=== PATIENT | male | born 1960 | race Caucasian/White ===

== ENCOUNTER 2016-07-11 11:51 | Emergency (ER) | payer MEDICAID ==
[2016-07-11 12:31] LABS: MONOCYTES# 0.8 X 10^3uL (0.2-1.0); NEUTROPHILS# 3.4 X 10^3uL (2.6-6.7)
[2016-07-11 12:36] LABS: BASOPHILS 0.5 % (0.0-2.0); EOSINOPHILS 2.3 % (0.0-6.0); EOSINOPHILS# 0.2 X 10^3uL (0.0-0.4); HEMATOCRIT 48.2 % (42.0-54.0); HEMOGLOBIN 16.8 g/dL (14.0-18.0); LYMPHOCYTES 37.6 % (20.0-40.0); LYMPHOCYTES# 2.7 X 10^3uL (0.8-3.8); MEAN CELL VOLUME 89.8 fL (80.0-100.0); MEAN CORPUS. HGB CONCENTRATION 34.9 g/dL (32.0-36.0); MEAN CORPUSCULAR HEMOGLOBIN 31.4 pg (29.0-35.0); MEAN PLATELET VOLUME 7.7 fL (7.4-10.4); MONOCYTES 11.1 % (2.0-10.0); NEUTROPHILS 48.5 % (54.0-75.0); PLATELET COUNT 233 X 10^3uL (130-440); RED BLOOD COUNT 5.37 X 10^6uL (4.20-6.10); RED CELL DISTRIBUTION WIDTH 12.2 % (11.5-14.5); WHITE BLOOD COUNT 7.1 X 10^3uL (3.9-10.7)
[2016-07-11 12:43] LABS: BLOOD UREA NITROGEN 14 mg/dL (9-20); CALCIUM 9.8 mg/dL (8.4-10.2); CHLORIDE 102 mmol/L (98-107); EST GLOMERULAR FILTRATION RATE > 60 mL/min; GLUCOSE 93 mg/dL (70-100); POTASSIUM 3.9 mmol/L (3.5-5.1); SODIUM 139 mmol/L (137-145)
[2016-07-11 12:55] LABS: TROPONIN I < 0.012 ng/mL (0.00-0.034)
--- NOTE | 2016-07-11 14:29 | CT REPORT ---
HISTORY: Dizzy, abnormal smells and COMPARISON: None. TECHNIQUE: Axial non-contrast images obtained from skull vertex through foramen magnum. Dose reduction technique was utilized. FINDINGS: There is no atrophy. There is no hemorrhage. There is no hydrocephalus. No mass lesion is identifi ed. Bunch white differentiation adequate, there is no infarction. No midline shift is identified. T he paranasal sinuses are clear. No subdural or epidural collection, midline shift or mass effect. No significant chronic white matter changes. Skull is intact. The frontal lobes particularly appear norm al. IMPRESSION: Negative head CT. Final Electronic Signature: This report was electronically signed by Matt Fernandez MD on 07/11/2016 2 :27 PM. mele /
--- NOTE | 2016-07-11 15:29 | ER PHYSICIAN DOCUMENTATION ---
Physician Documentation [facility] Name:Juan Miguel Tolentino Age:55 yrs Sex:Male :1960 Arrival Date:07/11/2016 Time:11:51 Bed3 Private MD:Faina Tony ED, Chris Disposition: 07/11/16 14:48 Discharged to Home/Self Care. Impression: Dizziness - Vertigo, Dehydration, Hypertension. - Condition is Good. - Discharge Instructions: DEHYDRATION (5y-Adult), DIZZINESS, Unk Cause, HYPERTENSION, To Be Confirmed. - Medical Reconciliation form form. - Follow up: Leticia Burris MD; When: 4- 6 days; Reason: Recheck today's complaints, Continuance of care. - Problem is new. - Symptoms have improved. - Notes: Drink 2 - 3 quarts of water every day. Rest... Follow up with Dr. Burris at the [facility] in 4 - 6 days for BP recheck and re-evaluation. Historical: - Allergies: No known drug Allergies; - Home Meds: 1. None - PMHx: HEADACHES; DIVERTICULITIS; - PSHx: COLOSTOMY ; - Tetanus: < 10 years. - Ebola Screening: : Patient negative for fever greater than or equal to 101.5 degrees Fahrenheit, and additional compatible Ebola Virus Disease symptoms. - Immunization history: Flu Vaccine None. - Social history: Smoking status: Patient states former smoker of tobacco. Vital Signs: 07/11 12:18 BP 176 / 114; Pulse 94; Resp 18; Temp 98.3(O); Pulse Ox 94% on R/A; Weight 98.88 kg; rh Height 5 ft. 7 in. (170.18 cm); Pain 0/10; 13:21 BP 136 / 93; Pulse 75; Resp 15; Pulse Ox 92% on R/A; Pain 0/10; rh 15:27 BP 145 / 82; Pulse 70; Resp 15; Pulse Ox 93% on R/A; Pain 0/10; rh 12:18 Body Mass Index 34.14 (98.88 kg, 170.18 cm) rh MDM: 12:22 Patient medically screened. cd 12:40 EKG attached lpr 07/11 12:37 Order name: CBC AUTO DIF, MDIF/RMOR IF IND; Complete Time: 13:06 EDMS 05/17 13:06 Interpretation: Normal. 07/11 12:44 Order name: BASIC METABOLIC PANEL; Complete Time: 13:06 EDMS 07/11 13:06 Interpretation: Normal. 07/11 12:45 Order name: DDIMER; Complete Time: 13:06 EDMS 07/11 14:46 Interpretation: Normal Except: DDIMER 274; Mildly Elevated but not > 10x the patient's cd age. 07/11 12:55 Order name: TROPONIN I; Complete Time: 13:06 EDMS 07/11 13:06 Interpretation: Normal. 07/11 14:06 Order name: CAT SCAN; HEAD W/O CON [id number]; Complete Time: 14:46 EDMS 07/11 14:46 Interpretation: Normal. 07/11 14:30 Order name: CAT SCAN; HEAD W/O CON [id number]; Complete Time: 14:46 EDMS 07/11 14:46 Interpretation: Normal: See Report. 07/11 12:22 Order name: Call For Old Ekg; Complete Time: 12:32 cd 07/11 12:20 Order name: EKG - 12 Lead; Complete Time: 12:20 07/11 12:22 Order name: Continuous Cardiac Monitoring; Complete Time: 12:32 cd 07/11 12:22 Order name: I & O; Complete Time: 12:32 cd 07/11 12:22 Order name: NPO; Complete Time: 12:32 cd 07/11 12:22 Order name: Oxygen; Complete Time: 12:32 cd 07/11 12:22 Order name: Pulse Ox Continuous; Complete Time: 12:32 cd 07/11 12:22 Order name: Accucheck; Complete Time: 12:32 cd Dispensed Medications: 12:32 Drug: NS 0.9% 1000 ml; Route: IV; Rate: bolus; Site: right hand; rh 14:32 Follow up: IV Status: Completed infusion; IV Intake: 1000ml rh 14:32 Drug: NS 0.9% 1000 ml; Route: IV; Rate: 250 ml/hr; Site: right hand; rh 15:28 Follow up: IV Status: Completed infusion; IV Intake: 750ml rh Point of Care Testing: Blood Glucose: 12:15 Blood Glucose: 100 mg/dL; Urine Dip: 13:20 pH: 6.0; ; Specific [place]: 1.015; Ketones: Negative; Glucose: Negative; Protein: rh Negative; Leukocytes: Negative; Nitrite: Negative ; Blood: Negative; Bilirubin: Negative ; Urobilinogen: Normal Ranges: Critical Glucose Levels:Adult <50 mg/dl or >400 mg/dl <40 mg/dl or >180 mg/dl Signatures: Donny Luu MD MD cd Roberts, Leslie, RN RN lpr Hofsess, Rachel
--- NOTE | 2016-07-11 15:29 | ER NURSING DOCUMENTATION ---
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 Pt also reports nausea and slight headache. Pt states he had a similar episode several weeks ago. PT took ibuprofen this AM for headache which relieved his pain,. 13:22 Transition of care: Home. Care prior to arrival: IV initiated. Glucose check. 100 Labs. 13:22 Method Of Arrival: EMS: 410 Triage Assessment: 12:17 General: Appears in no apparent distress, Behavior is cooperative. Pain: Complains of rh pain in HEADACHE. EENT: Oral mucosa is dry. Neuro: Level of Consciousness is awake, alert, obeys commands, Oriented to person, place, time, event, Diesel Scoop Operator are equal bilaterally Moves all extremities. Gait is steady, Speech is normal, Facial symmetry appears normal, Pupils are PERRLA. Cardiovascular: Capillary refill < 3 seconds. Respiratory: Airway is patent Respiratory effort is even, unlabored, Respiratory pattern is regular, symmetrical, Denies shortness of breath. GI: Abdomen is non- distended Reports nausea, Denies diarrhea, vomiting. : No deficits noted. Derm: Skin is intact, is healthy with good turgor, Skin is pink, warm & dry. Historical: - Allergies: No known drug Allergies; - Home Meds: 1. None - PMHx: HEADACHES; DIVERTICULITIS; - PSHx: COLOSTOMY ; - Tetanus: < 10 years. - Ebola Screening: : Patient negative for fever greater than or equal to 101.5 degrees Fahrenheit, and additional compatible Ebola Virus Disease symptoms. - Immunization history: Flu Vaccine None. - Social history: Smoking status: Patient states former smoker of tobacco. Screenin:19 Infectious Disease Risk None. Abuse screen: Denies threats or abuse. Denies injuries rh from another. Nutritional screening: No deficits noted. Assessment: 12:19 See Triage Assessment done by same RN. 13:56 Reassessment: cardiology clinic is faxing up the results of his carotid studies done . rh Vital Signs: 12:18 BP 176 / 114; Pulse 94; Resp 18; Temp 98.3(O); Pulse Ox 94% on R/A; Weight 98.88 kg; rh Height 5 ft. 7 in. (170.18 cm); Pain 0/10; 13:21 BP 136 / 93; Pulse 75; Resp 15; Pulse Ox 92% on R/A; Pain 0/10; rh 15:27 BP 145 / 82; Pulse 70; Resp 15; Pulse Ox 93% on R/A; Pain 0/10; rh 12:18 Body Mass Index 34.14 (98.88 kg, 170.18 cm) rh ED Course: 11:50 Notified ED Physician of patient's arrival and chief complaint. Dr. Luu notified. rh 11:52 Patient arrived in ED. ds 11:52 Faina Tony is Private Physician. ds 11:57 Carmen Wilson is Primary Nurse. rh 11:57 Triage completed. rh 12:00 cafeteria monitor on. Pulse ox on. NIBP on. rh 12:01 EKG done. (by ED staff). Reviewed by Donny Luu MD. rh 12:19 Valuables Remains with patient Patient has correct armband on for positive rh identification. Bed in low position. Call light in reach. Side rails up X 1. 12:19 Maintain field IV. Site clean & dry. Gauge & site: 22g in the R HAND. rh 12:22 Donny Luu MD is Attending Physician. cd 12:40 EKG attached lpr 14:[address] tt 14:06 CAT SCAN; HEAD W/O CON 09662 In Process Unspecified. EDMS 14:[address]. tt 14:47 Leticia Burris MD is Referral Physician. cd Administered Medications: 12:32 Drug: NS 0.9% 1000 ml; Route: IV; Rate: bolus; Site: right hand; rh 14:32 Follow up: IV Status: Completed infusion; IV Intake: 1000ml rh 14:32 Drug: NS 0.9% 1000 ml; Route: IV; Rate: 250 ml/hr; Site: right hand; rh 15:28 Follow up: IV Status: Completed infusion; IV Intake: 750ml rh Point of Care Testing: Blood Glucose: 12:15 Blood Glucose: 100 mg/dL; rh Urine Dip: 13:20 pH: 6.0; ; Specific [employer]: 1.015; Ketones: Negative; Glucose: Negative; Protein: rh Negative; Leukocytes: Negative; Nitrite: Negative ; Blood: Negative; Bilirubin: Negative ; Urobilinogen: Normal Ranges: Intake: 14:32 IV: 1000ml; Total: 1000ml. rh 15:28 IV: 750ml; Total: 1750ml. Outcome: 14:48 Discharge ordered by . laura 15:27 Discharged to home ambulatory, with friend. 15:27 Condition: improved 15:27 Discharge Assessment: Patient awake, alert and oriented x 3. No cognitive and/or functional deficits noted. Patient verbalized understanding of disposition instructions. 15:27 Discharge instructions given to patient, Instructed on discharge instructions, follow up and referral plans. Demonstrated understanding of instructions. 15:27 IV D/Miguel Angel 15:28 Patient left the ED. Signatures: Dispatcher [employer] EDMS Karen Cain, Reg Reg Donny Olmstead MD MD cd Terriere, Tracy tt Roberts, Leslie, RN RN lpr Hofsess, Rachel
== END 2016-07-11 15:29 | disposition home or self-care (01) ==
LOC: ER 11:51
DX: R42 Dizziness and giddiness (principal); E86.0 Dehydration; I10 Essential (primary) hypertension; R11.0 Nausea; R51 Headache; R79.1 Abnormal coagulation profile
CPT/HCPCS: 70450; 80048; 84484; 85025; 85379; 93005; 96360; 96361; 99285; A0425; A0427

== ENCOUNTER 2016-08-24 20:07 | Observation (INO) | payer MEDICAID ==
[2016-08-24 20:37] LABS: BASOPHIL# 0.1 X 10^3uL (0.0-0.1); BASOPHILS 1.3 % (0.0-2.0); EOSINOPHILS 0.7 % (0.0-6.0); EOSINOPHILS# 0.1 X 10^3uL (0.0-0.4); HEMATOCRIT 49.3 % (42.0-54.0); HEMOGLOBIN 17.3 g/dL (14.0-18.0); LYMPHOCYTES 16.9 % (20.0-40.0); LYMPHOCYTES# 1.6 X 10^3uL (0.8-3.8); MEAN CELL VOLUME 90.4 fL (80.0-100.0); MEAN CORPUS. HGB CONCENTRATION 35.1 g/dL (32.0-36.0); MEAN CORPUSCULAR HEMOGLOBIN 31.7 pg (29.0-35.0); MEAN PLATELET VOLUME 7.6 fL (7.4-10.4); MONOCYTES# 0.7 X 10^3uL (0.2-1.0); NEUTROPHILS 74.1 % (54.0-75.0); PLATELET COUNT 214 X 10^3uL (130-440); RED BLOOD COUNT 5.46 X 10^6uL (4.20-6.10); RED CELL DISTRIBUTION WIDTH 12.1 % (11.5-14.5); WHITE BLOOD COUNT 9.5 X 10^3uL (3.9-10.7)
[2016-08-24] MEDS ORDERED: ONDANSETRON HCL 4 MG/2 ML VIAL ONE (20:45)
[2016-08-24 20:48] LABS: ALBUMIN 4.8 g/dL (3.5-5.0); ALKALINE PHOSPHATASE 74 U/L (38-126); ALT 82 U/L (21-72); AST 39 U/L (17-59); BILIRUBIN, DIRECT 0.2 mg/dL (0.0-0.4); BILIRUBIN, TOTAL 1.2 mg/dL (0.2-1.3); BLOOD UREA NITROGEN 17 mg/dL (9-20); CALCIUM 10.1 mg/dL (8.4-10.2); CHLORIDE 102 mmol/L (98-107); EST GLOMERULAR FILTRATION RATE > 60 mL/min; GLUCOSE 103 mg/dL (70-100); LIPASE 72 U/L (23-300); POTASSIUM 3.6 mmol/L (3.5-5.1); SODIUM 136 mmol/L (137-145); TOTAL PROTEIN 7.8 g/dL (6.3-8.2)
[2016-08-24] MEDS ORDERED: KETOROLAC TROMETHAMINE 30 MG/ML VIAL ONE (20:53)
--- NOTE | 2016-08-24 21:39 | RADIOLOGY REPORT ---
HISTORY: Left lower quadrant pain, history of diverticulitis COMPARISON: None. FINDINGS: 3 views of the abdomen obtained. Single frontal view of the chest obtained. No renal, ureteral or urinary bladder calculi are noted. The bowel gas pattern is nonspecific. The bones and soft tissues are unremarkable. Heart size within normal limits. The lungs are clear bilaterally. No effusion or pneumothorax. No wes e air under the hemidiaphragms. IMPRESSION: Unremarkable acute abdominal series. Final Electronic Signature: This report was electronically signed by Alexandr Velasquez MD on 08/24/2016 9:37 PM. [email or web address] /
[2016-08-24] MEDS ORDERED: DICYCLOMINE HCL 10 MG CAPSULE PO ONE (21:59)
[2016-08-24] MEDS ORDERED: DICYCLOMINE HCL 20 MG/2 ML AMP IM ONE (22:00)
--- NOTE | 2016-08-24 23:21 | CT REPORT ---
EXAMINATION: CT OF THE ABDOMEN AND PELVIS WITH IV CONTRAST INDICATION: Left lower quadrant pain. [facility]. TECHNIQUE: Transaxial images of the abdomen and pelvis were obtained from the diaphragmatic dome to t he ischial tuberosity according to routine abdomen and pelvis protocol, following the administration of intravenous contrast material, Isovue 300, 100 ml. This examination was performed using automate d exposure control, adjustment of mA or kV according to patient size, and/or use of iterative reconst ruction technique. COMPARISON: None FINDINGS: Liver: Right lobe is enlarged measuring 20.1 cm craniocaudal. The liver is diffusely hypoattenuating compatible with steatosis. Patent portal veins. Bile ducts: No intra- or extra-hepatic dilation. Gallbladder: No gallstones or wall thickening. Pancreas: Normal. Spleen: No splenomegaly. Adrenals: Normal adrenal glands. Kidneys/Urinary Bladder: Subcentimeter hypoattenuating structures in the kidneys are too small to jessica racterize but may reflect small cysts. Kidneys are without hydronephrosis or obstructive nephrolithi asis. Urinary bladder is thin walled and distended. Reproductive organs: Prostate is normal in size. GI tract/Mesentery: Normal appendix. There is distention of small bowel in the left lower quadrant with fecalization of contents upstream from a possible transition point seen in axial image 68/99. There are postsurgical changes in the re ctosigmoid colon. Vascular: Mild non-circumferential aortic and iliac artery calcifications without aneurysm. Peritoneum/retroperitoneum: No free fluid or free air. Lymph Nodes: No significant lymphadenopathy in the abdomen or pelvis. Bones: Bones are without evidence of acute fractures. Superficial Soft Tissue: Normal. Lower chest: There is bibasilar atelectasis. IMPRESSION: 1. Distention of small bowel in the left lower quadrant with fecalization of contents upstream from a possible transition point. Given adjacent postsurgical changes from prior sigmoid colectomy, findi ngs raise concern for a small bowel obstruction. 2. Hepatomegaly and hepatic steatosis. COMMUNICATION: Dr. Thor Wilkinson discussed the pertinent results with Dr. Tony at 08/24/2016 11:18 PM. Final Electronic Signature: This report was electronically signed by Ramírez Wilkinson MD on 11:19 PM. laurie /
[2016-08-24] MEDS ORDERED: HOME MEDICATION LIST NEEDED 1 EA EACH MC ONE (23:29)
[2016-08-25] MEDS: NORMAL SALINE 1,000 ML IV SCH ×2 (01:19→07:58)
[2016-08-25] MEDS: ONDANSETRON HCL 4 MG/2 ML VIAL IV PRN ×2 (01:19→12:51)
--- NOTE | 2016-08-25 01:19 | ER PHYSICIAN DOCUMENTATION ---
Physician Documentation [facility] Name:Juan Miguel Hurtado Age:56 yrs Sex:Male :1960 Arrival Date:08/24/2016 Time:20:07 Bed4 Private MD:Faina Tony ED, Scott Disposition: 08/24/16 23:24 Admit ordered for Abundio Nathan. Preliminary diagnosis is Bowel Obstruction. - Bed requested for Medical/Surgical. - Condition is Good. - Problem is new. - Symptoms have improved. 23 HR OBS Yes HPI: 08/24 20:52 This 56 yrs old Male presents to ER via Walk In with complaints of Abdominal sc Pain. 20:52 The patient presents with abdominal pain abdominal distention in the left lower sc quadrant, that is diffuse. constipation, has tried to treat at home, with enema(s). Onset: The symptoms/episode began/occurred today. The symptoms do not radiate. Associated signs and symptoms: Pertinent positives: nausea, vomiting, Pertinent negatives: diarrhea, dysuria, fever, vomiting blood. The symptoms are described as waxing/waning. Severity of pain: At its worst the pain was moderate. Historical: - Allergies: No known drug Allergies; - Home Meds: 1. None - PMHx: HEADACHES; DIVERTICULITIS; Dizziness - Vertigo (July 11, 2016); Dehydration (July 11, 2016); Hypertension (July 11, 2016); - PSHx: COLOSTOMY ; - Tetanus: < 10 years. - Ebola Screening: : No symptoms or risks identified at this time. . - Immunization history: Flu Vaccine < 1 year. - Social history: Smoking status: Patient states was never smoker of tobacco. ROS: 20:52 Constitutional: Negative for fever, chills, and weight loss. sc Eyes: Negative for injury, pain, redness, and discharge. ENT: Negative for injury, pain, and discharge. Neck: Negative for injury, pain, and swelling. Cardiovascular: Negative for chest pain, palpitations, and edema. Respiratory: Negative for shortness of breath, cough, wheezing, and pleuritic chest pain. Back: Negative for injury and pain. MS/Extremity: Negative for injury and deformity. Skin: Negative for injury, rash, and discoloration. 20:52 Neuro: Negative for headache, weakness, numbness, tingling, and seizure. sc 20:52 Abdomen/GI: Positive for abdominal pain, nausea, vomiting, constipation, abdominal distension. Exam: Constitutional: This is a well developed, well nourished patient who is awake, alert, and in no acute distress. Head/Face: Normocephalic, atraumatic. Eyes: Pupils equal round and reactive to light, extra-ocular motions intact. Lids and lashes normal. Conjunctiva and sclera are non-icteric and not injected. Cornea within normal limits. Periorbital areas with no swelling, redness, or edema. ENT: Nares patent. No nasal discharge, no septal abnormalities noted. Tympanic membranes are normal and external auditory canals are clear. Oropharynx with no redness, swelling, or masses, exudates, or evidence of obstruction, uvula midline. Mucous membranes moist. Neck: Trachea midline, no thyromegaly or masses palpated, and no cervical lymphadenopathy. Supple, full range of motion without nuchal rigidity, or vertebral point tenderness. No meningismus. Chest/axilla: Normal chest wall appearance and motion. Nontender with no deformity. No lesions are appreciated. Cardiovascular: Regular rate and rhythm with a normal S1 and S2. No gallops, murmurs, or rubs. Normal PMI, no JVD. No pulse deficits. Respiratory: Lungs have equal breath sounds bilaterally, clear to auscultation and percussion. No rales, rhonchi or wheezes noted. No increased work of breathing, no retractions or nasal flaring. Back: No spinal tenderness. No costovertebral tenderness. Full range of motion. 20:53 Skin: Warm, dry with normal turgor. Normal color with no rashes, no lesions, and no sc evidence of cellulitis. 20:53 Abdomen/GI: Inspection: distension, Bowel sounds: diminished, Palpation: moderate abdominal tenderness, in the left lower quadrant. Vital Signs: 20:26 BP 180 / 121; Pulse 88; Resp 16; Temp 97.7; Pulse Ox 98% on R/A; Weight 84.37 kg; mk4 Height 5 ft. 9 in. (175.26 cm); Pain 9/10; 23:06 BP 122 / 88; Pulse 83; Resp 16; Pulse Ox 95% 2 lpm ; Pain 7/10; mk4 07/ 01:12 BP 155 / 96; Pulse 87; Resp 14; Temp 98.5; Pulse Ox 97% on 2 lpm NC; Pain 2/10; mk4 08/24 20:26 Body Mass Index 27.47 (84.37 kg, 175.26 cm) 4 MDM: 08/24 20:14 Patient medically screened. ar 20:53 Differential diagnosis: appendicitis, bowel obstruction, diverticulitis, non-specific sc abd pain. Data reviewed: vital signs, nurses notes, lab test result(s), radiologic studies, and as a result, I will continue to observe the patient, administer IV fluids. 23:23 Counseling: I had a detailed discussion with the patient and/or guardian regarding: the ar historical points, exam findings, and any diagnostic results supporting the discharge/admit diagnosis, lab results, radiology results, the need for further work-up and treatment in the hospital. Physician consultation: Abundio Nathan MD was called at 23:23, was contacted at 23:23, regarding admission, to the floor. 08/24 20:44 Order name: CBC AUTO DIF, MDIF/RMOR IF IND; Complete Time: 20:55 [facility] 08/24 20:51 Order name: BASIC METABOLIC PANEL; Complete Time: 20:55 [facility] 08/24 20:51 Order name: HEPATIC PANEL; Complete Time: 20:55 [facility] 08/24 20:51 Order name: LIPASE; Complete Time: 20:55 [facility] 08/25 13:21 Order name: BASIC METABOLIC PANEL [facility] 08/25 13:27 Order name: CBC AUTO DIF, MDIF/RMOR IF IND [facility] 08/26 07:03 Order name: CBC AUTO DIF, MDIF/RMOR IF IND [facility] 08/26 07:38 Order name: BASIC METABOLIC PANEL [facility] 08/26 07:38 Order name: LACTATE [facility] 08/24 21:42 Order name: ABDOMEN; COMPLET W/CHEST [id number]; Complete Time: 22:59 [facility] 08/24 22:59 Interpretation: Normal. ar 08/24 23:25 Order name: CAT SCAN; ABD/PEL W 06756 [facility] 08/24 20:18 Order name: Iv Saline Lock; Complete Time: 21:00 ar 08/24 20:18 Order name: Urine Dip; Complete Time: 01:15 ar 08/24 20:46 Order name: Oxygen; Complete Time: 20:46 mk2 Dispensed Medications: Completed: NS 0.9% 1000 ml IV at bolus once 20:27 Drug: NS 0.9% 1000 ml; Volume: 1000 ml; Route: IV; Rate: bolus; Infused Over: 45 mins; mk4 Site: right hand; Delivery: [place] [facility]; 22:06 Follow up: IV Status: Completed infusion; Infusion discontinued; IV Intake: 1000ml 4 20:57 Drug: Zofran 4 mg; Route: IVP; Rate: 5 bolus; Infused Over: 2 mins; Site: right hand; mk4 22:07 Follow up: Response: No adverse reaction; Nausea is decreased 4 20:58 Drug: Toradol 30 mg; Route: IVP; Rate: 30 bolus; Infused Over: 3 mins; Site: right hand;4 22:07 Follow up: Response: No adverse reaction; Pain is decreased mk4 22:03 CANCELLED (pt refused): Bentyl 20 mg IM once mk4 22:03 Drug: Bentyl 20 mg; Route: PO; mk4 08/25 01:18 Follow up: Response: No adverse reaction 4 Signatures: Rudi Tony MD MD sc Kruger, Meg RN RN mk2 Jami Rodriguez 4
--- NOTE | 2016-08-25 01:19 | ER NURSING DOCUMENTATION ---
Nurse's Notes [facility] Name:Juan Miguel Hurtado Age:56 yrs Sex:Male :1960 Arrival Date:08/24/2016 Time:20:07 Bed4 Private MD:Faina Tony Diagnosis:Bowel Obstruction Presentation: 08/24 20:17 Presenting complaint: Patient states: N/V x 1. Diffuse abdominal pain. States gave 4 himself an enema without relief. Transition of care: Home. 20:17 Acuity: BISI 3 4 20:17 Method Of Arrival: Walk In [facility] Triage Assessment: 20:25 General: Appears distressed, Behavior is restless. Pain: Complains of pain in right mk4 upper quadrant, left upper quadrant, right lower quadrant and left lower quadrant Pain does not radiate. Pain At worst was 9 out of 10 on a pain scale. EENT: No deficits noted. Neuro: No deficits noted. Cardiovascular: Chest pain is denied. Respiratory: Airway is patent Respiratory effort is even, unlabored. GI: Abdomen is distended, Last BM was August 24, 2016. Bowel sounds present X 4 quads. : No deficits noted. Derm: No deficits noted. Musculoskeletal: No deficits noted. Historical: - Allergies: No known drug Allergies; - Home Meds: 1. None - PMHx: HEADACHES; DIVERTICULITIS; Dizziness - Vertigo (July 11, 2016); Dehydration (July 11, 2016); Hypertension (July 11, 2016); - PSHx: COLOSTOMY ; - Tetanus: < 10 years. - Ebola Screening: : No symptoms or risks identified at this time. . - Immunization history: Flu Vaccine < 1 year. - Social history: Smoking status: Patient states was never smoker of tobacco. Screenin:10 Infectious Disease Risk None. Abuse screen: Denies threats or abuse. Nutritional 4 screening: No deficits noted. Assessment: 20:28 See Triage Assessment done by same RN. [facility] 20:30 GI: Abdomen is tender to palpation X 4 quads. Guarding noted X 4 quads. [facility] Vital Signs: 20:26 BP 180 / 121; Pulse 88; Resp 16; Temp 97.7; Pulse Ox 98% on R/A; Weight 84.37 kg; mk4 Height 5 ft. 9 in. (175.26 cm); Pain 9/10; 23:06 BP 122 / 88; Pulse 83; Resp 16; Pulse Ox 95% 2 lpm ; Pain 7/10; mk4 08/25 01:12 BP 155 / 96; Pulse 87; Resp 14; Temp 98.5; Pulse Ox 97% on 2 lpm NC; Pain 2/10; mk4 08/24 20:26 Body Mass Index 27.47 (84.37 kg, 175.26 cm) mk4 ED Course: 08/24 20:08 Patient arrived in ED. ma1 20:08 Faina Tony is Private Physician. ma1 20:14 Rudi Tony MD is Attending Physician. sc 20:17 Jami Rodriguez is Primary Nurse. mk4 20:19 Triage completed. mk4 20:28 Arm band placed on Bed in low position Call Light in Reach Side rails up x2. Labs mk4 ordered per protocol. Drawn by ED staff. 20:30 Inserted peripheral IV: saline lock: 20 gauge in right hand and blood collected. jt 20:46 Valuables Remains with patient. Pulse ox on. NIBP on. mk2 20:47 Oxygen Oxygen administration via nasal cannula @ 2L/min. mk2 21:00 Patient moved to radiology. mr 21:16 Patient moved back from radiology. mr 23:24 Abundio Nathan MD is Admitting Physician. sc Administered Medications: Completed: NS 0.9% 1000 ml IV at bolus once 20:27 Drug: NS 0.9% 1000 ml; Volume: 1000 ml; Route: IV; Rate: bolus; Infused Over: 45 mins; mk4 Site: right hand; Delivery: [place] [facility]; 22:06 Follow up: IV Status: Completed infusion; Infusion discontinued; IV Intake: 1000ml mk4 20:57 Drug: Zofran 4 mg; Route: IVP; Rate: 5 bolus; Infused Over: 2 mins; Site: right hand; mk4 22:07 Follow up: Response: No adverse reaction; Nausea is decreased mk4 20:58 Drug: Toradol 30 mg; Route: IVP; Rate: 30 bolus; Infused Over: 3 mins; Site: right hand;mk4 22:07 Follow up: Response: No adverse reaction; Pain is decreased mk4 22:03 CANCELLED (pt refused): Bentyl 20 mg IM once mk4 22:03 Drug: Bentyl 20 mg; Route: PO; mk4 08/25 01:18 Follow up: Response: No adverse reaction mk4 Intake: 08/24 22:06 IV: 1000ml; Total: 1000ml. 4 Outcome: 23:24 Decision to Admit by Provider. va 08/25 01:12 Admitted to Med/surg accompanied by nurse, via stretcher, with oxygen, with chart. mk4 Condition: good Report given to [place] DAYquality improvement specialist Assessment: Patient awake and alert. 01:19 Patient left the ED. 4 Signatures: Rudi Tony MD MD sc Kruger, Meg, RN RN sera2 Jami Rodriguez mkZoila Robb Melissa ma1 Alexandr Solorio mr
[2016-08-25] MEDS ORDERED: HOME MEDICATION LIST NEEDED 1 EA EACH MISC ONE (02:00)
[2016-08-25] MEDS ORDERED: SIMETHICONE CHEW 80 MG TABLET PO ONE (03:37)
[2016-08-25] MEDS ORDERED: SIMETHICONE CHEW 80 MG TABLET PO PRN (03:51)
[2016-08-25] MEDS: MAG-AL PLUS XS SUSP 30 ML UDC PO PRN ×3 (04:50→10:47)
[2016-08-25] MEDS: ACETAMINOPHEN 325 MG TABLET PO PRN ×3 (08:56→21:55)
[2016-08-25 13:19] LABS: BLOOD UREA NITROGEN 15 mg/dL (9-20); CALCIUM 9.7 mg/dL (8.4-10.2); CHLORIDE 101 mmol/L (98-107); EST GLOMERULAR FILTRATION RATE > 60 mL/min; GLUCOSE 110 mg/dL (70-100); POTASSIUM 3.9 mmol/L (3.5-5.1); SODIUM 136 mmol/L (137-145)
[2016-08-25 13:23] LABS: BASOPHIL# 0.1 X 10^3uL (0.0-0.1); EOSINOPHILS 0.8 % (0.0-6.0); EOSINOPHILS# 0.1 X 10^3uL (0.0-0.4); HEMATOCRIT 47.3 % (42.0-54.0); HEMOGLOBIN 16.8 g/dL (14.0-18.0); LYMPHOCYTES 15.8 % (20.0-40.0); LYMPHOCYTES# 1.4 X 10^3uL (0.8-3.8); MEAN CELL VOLUME 89.5 fL (80.0-100.0); MEAN CORPUS. HGB CONCENTRATION 35.4 g/dL (32.0-36.0); MEAN CORPUSCULAR HEMOGLOBIN 31.7 pg (29.0-35.0); MEAN PLATELET VOLUME 7.5 fL (7.4-10.4); MONOCYTES# 0.7 X 10^3uL (0.2-1.0); NEUTROPHILS 74.4 % (54.0-75.0); NEUTROPHILS# 6.8 X 10^3uL (2.6-6.7); PLATELET COUNT 224 X 10^3uL (130-440); RED BLOOD COUNT 5.28 X 10^6uL (4.20-6.10); RED CELL DISTRIBUTION WIDTH 12.3 % (11.5-14.5); WHITE BLOOD COUNT 9.1 X 10^3uL (3.9-10.7)
[2016-08-25] MEDS ORDERED: NORMAL SALINE 1,000 ML IV SCH ×2 (14:00→21:15)
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
[2016-08-26 06:56] LABS: BASOPHILS 0.6 % (0.0-2.0); EOSINOPHILS# 0.2 X 10^3uL (0.0-0.4); HEMATOCRIT 42.4 % (42.0-54.0); HEMOGLOBIN 14.6 g/dL (14.0-18.0); LYMPHOCYTES 29.7 % (20.0-40.0); LYMPHOCYTES# 1.9 X 10^3uL (0.8-3.8); MEAN CELL VOLUME 91.3 fL (80.0-100.0); MEAN CORPUS. HGB CONCENTRATION 34.4 g/dL (32.0-36.0); MEAN CORPUSCULAR HEMOGLOBIN 31.4 pg (29.0-35.0); MEAN PLATELET VOLUME 7.6 fL (7.4-10.4); MONOCYTES 9.7 % (2.0-10.0); MONOCYTES# 0.6 X 10^3uL (0.2-1.0); NEUTROPHILS# 3.6 X 10^3uL (2.6-6.7); PLATELET COUNT 164 X 10^3uL (130-440); RED BLOOD COUNT 4.64 X 10^6uL (4.20-6.10); RED CELL DISTRIBUTION WIDTH 12.1 % (11.5-14.5); WHITE BLOOD COUNT 6.3 X 10^3uL (3.9-10.7)
[2016-08-26 07:03] VITALS: BP 107/69; PULSE 67; RESP 16; TEMP 97.6; O2SAT 93
[2016-08-26 07:37] LABS: BLOOD UREA NITROGEN 14 mg/dL (9-20); CALCIUM 8.6 mg/dL (8.4-10.2); CHLORIDE 109 mmol/L (98-107); EST GLOMERULAR FILTRATION RATE > 60 mL/min; GLUCOSE 85 mg/dL (70-100); POTASSIUM 3.7 mmol/L (3.5-5.1); SODIUM 139 mmol/L (137-145)
[2016-08-26 07:38] LABS: LACTATE 0.9 mmol/L (0.7-2.1)
--- NOTE | 2016-08-26 10:06 | DC SUMMARY: IM Note ---
Discharge Summary: IM/Peds Provider: Date of Admission: 08/25/16 Admitting Provider: NICOLETTE MARS MD Attending Provider: MARYCRUZ BURRIS MD Discharging Provider: NICOLETTE MARS MD Primary Care Provider: Discharge Date: 08/26/16 Consults: 08/25/16 10:07 Surgical Consult [CONS] Routine Reason: SBO Hospital Course: This 56-year-old gentleman was admitted to the [facility] on 08/25/16 because of a 1 day history of abdominal bloating, discomfort, nausea, and vomiting. The night before he had tried self treating for possible constipation using enemas. These successfully cleaned out some normal stool but did not resolve his symptoms. On admission his CAT scan was consistent with a small bowel obstruction. He did not improve much with bowel rest over the first 12 hours, having multiple episodes of vomiting, and intermittent hiccups. Overnight, however, his symptoms resolved and he passed 3 stools. This morning he feels normal and tolerated scrambled eggs for breakfast without any abdominal pain. He did say that he had some discomfort while swallowing, which likely is due to to some esophagitis from yesterday's vomiting. He has had no further symptoms since then, though, so I will send him home. His white count remained normal throughout the admission, it is down even further this morning. His electrolytes remained normal with the help of IV normal saline throughout the stay. Dr. Culp, general surgery, evaluated him yesterday and advised watchful waiting. He did have some hypoxia yesterday when he was quite ill, but has a room air oxygen saturation currently is 96%. He does have some suspicion for sleep apnea , and is tentatively planning on getting a sleep study through Dr. Burris. He already has an appointment to see her on 08/29/16 at 10:30 - Time Spent with Patient Total time spent providing and/or coordinating discharge services: 35 min Discharge - Patient/Caregiver Discharge Instructions Activity Level: As tolerated Diet: gluten free Follow up: MARYCRUZ BURRIS MD [ACTIVE (Staff Physician)] - 08/29/16 10:30 am Disposition: HOME, SELF-CARE Discharge Summary Data - Medication History Medication History: Home Medications Other [No Known Home Medications] 08/26/16 Inpatient Medications 08/25/16 03:51 Simethicone Chew [Mylicon] 80 - 160 mg PO Q4H PRN 08/25/16 04:47 Mag-Al Plus Xs Susp [Maalox Liquid] 30 ml PO Q3H PRN 08/25/16 08:18 Acetaminophen [Tylenol] 650 mg PO Q4H PRN Procedures and tests throughout hospitalization: Completed Lab Orders 08/25/16 13:00 BMP [BASIC METABOLIC PANEL] [CHEM] Routine CBC AUTO DIF, MDIF/RMOR IF IND [HEM] Routine 08/26/16 06:35 BMP [BASIC METABOLIC PANEL] [CHEM] AMDRAW CBC AUTO DIF, MDIF/RMOR IF IND [HEM] AMDRAW LACTATE [CHEM] AMDRAW Pending Orders 08/25/16 03:51 Simethicone Chew [Mylicon] 80 - 160 mg PO Q4H PRN 08/25/16 04:47 Mag-Al Plus Xs Susp [Maalox Liquid] 30 ml PO Q3H PRN 08/25/16 08:17 Sips and Chips . 08/25/16 08:18 Acetaminophen [Tylenol] 650 mg PO Q4H PRN 08/25/16 10:07 Surgical Consult [CONS] Routine 08/26/16 09:04 Advance diet as tolerated . 08/26/16 09:57 ADD ON LAB TEST [MULTI] Routine 08/26/16 09:58 Discharge ONCE Labs on day of discharge: Labs from last 24 hours 08/26/16 08/25/16 06:35 13:00 WBC 6.3 9.1 RBC 4.64 5.28 Hgb 14.6 16.8 Hct 42.4 47.3 MCV 91.3 89.5 MCH 31.4 31.7 MCHC 34.4 35.4 RDW 12.1 12.3 Plt Count 164 224 MPV 7.6 7.5 Neutrophils % 57.0 74.4 Lymphocytes % 29.7 15.8 L Eosinophils % 3.0 0.8 Basophils % 0.6 1.0 Neutrophils # 3.6 6.8 H Lymphocytes # 1.9 1.4 Monocytes 9.7 8.0 Monocytes # 0.6 0.7 Eosinophils # 0.2 0.1 Basophils # 0.0 0.1 Sodium 139 136 L Potassium 3.7 3.9 Chloride 109 H 101 Carbon Dioxide 25 27 BUN 14 15 Creatinine 1.1 1.1 GFR Calculation > 60 > 60 Glucose 85 110 H Lactic Acid 0.9 Calcium 8.6 9.7 IM: Discharge Physical Exam - I&O/Vital Signs I&O: Intake & Output 08/25/16 08/26/16 08/26/16 21:59 05:59 13:59 Intake Total 1850 Output Total 4875 1000 Balance -4875 850 Intake: IV 1850 Right Wrist 1850 Output: Urine 875 Emesis 4000 1000 Other: Urine Appearance Clear Clear Urine Color Yellow Yellow Stool Size Large Large Stool Characteristics Liquid Liquid Voiding Method Toilet Toilet # Bowel Movements 3 Vital Signs: Last Vital Signs Temp 36.4 C 08/26/16 07:00 Pulse 67 08/26/16 07:00 Resp 16 08/26/16 09:00 BP 107/69 08/26/16 07:00 Pulse Ox 93 08/26/16 09:00 Oxygen Flow Rate 1.5 Oxygen Delivery Method Nasal Cannula - Constitutional General appearance: Present: obese - Head Head exam: Present: atraumatic - ENT ENT exam: Present: mucous membranes moist (9) - Respiratory Respiratory exam: Present: clear - Cardiovascular Cardiovascular exam: Present: RRR. Absent: systolic murmur - GI/Abdominal GI/Abdominal exam: Present: normal bowel sounds, soft. Absent: tenderness - Extremities Exam Extremities exam: Absent: edema - Neurological Exam Neurological exam: Present: normal gait - Psychiatric Psychiatric exam: Present: normal affect - Allied Health Notes Allied health notes reviewed: nursing
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
== END 2016-08-26 09:30 | disposition home or self-care (01) ==
LOC: ER 20:07 → IN 08-25 00:49
PROVIDERS: ADMIT Family Medicine; ATTEND Family Medicine
DX: K56.60 Unspecified intestinal obstruction (principal); E86.0 Dehydration; K20.9 Esophagitis, unspecified; K59.00 Constipation, unspecified; E78.5 Hyperlipidemia, unspecified; Z79.899 Other long term (current) drug therapy
CPT/HCPCS: 36415; 74022; 74177; 80048; 80076; 83516; 83605; 83690; 85025; 96361; 96374; 96375; 96376; 99285; G0378; J0500; J1170; J1885; J2405; J7030

== ENCOUNTER 2016-08-29 10:34 | Inpatient (IN) | payer MEDICAID ==
[2016-08-29] MEDS ORDERED: HOME MEDICATION LIST NEEDED 1 EA EACH MC ONE ×3 (11:24→16:20)
[2016-08-29] MEDS ORDERED: LACTATED RINGERS 1,000 ML IV ONE (11:38)
[2016-08-29 11:51] LABS: BASOPHILS 0.5 % (0.0-2.0); EOSINOPHILS 4.1 % (0.0-6.0); EOSINOPHILS# 0.2 X 10^3uL (0.0-0.4); HEMATOCRIT 46.1 % (42.0-54.0); HEMOGLOBIN 16.2 g/dL (14.0-18.0); LYMPHOCYTES 34.3 % (20.0-40.0); LYMPHOCYTES# 1.7 X 10^3uL (0.8-3.8); MEAN CELL VOLUME 89.7 fL (80.0-100.0); MEAN CORPUS. HGB CONCENTRATION 35.2 g/dL (32.0-36.0); MEAN CORPUSCULAR HEMOGLOBIN 31.6 pg (29.0-35.0); MEAN PLATELET VOLUME 7.3 fL (7.4-10.4); MONOCYTES 8.9 % (2.0-10.0); MONOCYTES# 0.4 X 10^3uL (0.2-1.0); NEUTROPHILS 52.2 % (54.0-75.0); NEUTROPHILS# 2.7 X 10^3uL (2.6-6.7); PLATELET COUNT 214 X 10^3uL (130-440); RED BLOOD COUNT 5.14 X 10^6uL (4.20-6.10); RED CELL DISTRIBUTION WIDTH 12.1 % (11.5-14.5)
[2016-08-29] MEDS ORDERED: LACTATED RINGERS 1,000 ML IV SCH ×6 (12:00→17:34)
[2016-08-29 12:10] LABS: BLOOD UREA NITROGEN 13 mg/dL (9-20); CALCIUM 9.5 mg/dL (8.4-10.2); CHLORIDE 107 mmol/L (98-107); EST GLOMERULAR FILTRATION RATE > 60 mL/min; GLUCOSE 91 mg/dL (70-100); POTASSIUM 3.7 mmol/L (3.5-5.1); SODIUM 138 mmol/L (137-145)
[2016-08-29] MEDS ORDERED: ceFAZolin/DEXTROSE,ISO 2 GM/50 ML PIGGYBACK IV SCH ×3 (14:00→16:20)
[2016-08-29] MEDS ORDERED: LIDOCAINE HCL 1% 20 ML VIAL SUBCUT PRN (14:04)
[2016-08-29] MEDS ORDERED: MIDAZOLAM HCL 2 MG/2 ML SYR IV PRN (14:04)
[2016-08-29] MEDS ORDERED: FENTANYL 100 MCG/2 ML VIAL IV PRN ×2 (14:04→16:20)
[2016-08-29] MEDS ORDERED: FAMOTIDINE IN SALINE, ISO-OSM 20 MG/50 ML PIGGYBACK IV ONE (14:08)
[2016-08-29] MEDS ORDERED: MIDAZOLAM HCL 2 MG/2 ML VIAL ONE (14:09)
[2016-08-29] MEDS ORDERED: FAMOTIDINE IN SALINE, ISO-OSM 20 MG/50 ML PIGGYBACK IV SCH (14:15)
[2016-08-29] MEDS ORDERED: FENTANYL 100 MCG/2 ML VIAL ONE (14:16)
[2016-08-29] MEDS ORDERED: ONDANSETRON HCL 4 MG/2 ML VIAL ONE (14:21)
[2016-08-29] MEDS ORDERED: NORMAL SALINE FLUSH 10 ML ONE (14:22)
[2016-08-29] MEDS ORDERED: SUCCINYLCHOLINE CHLORIDE 200 MG/10 ML VIAL ONE (14:22)
[2016-08-29] MEDS ORDERED: DEXAMETHASONE 4 MG/ML VIAL ONE (14:22)
[2016-08-29] MEDS ORDERED: ROCURONIUM BROMIDE 50 MG/5 ML VIAL IV ONE (14:22)
[2016-08-29] MEDS ORDERED: FENTANYL 250 MCG/5 ML VIAL ONE (14:22)
[2016-08-29] MEDS ORDERED: BUPIVACAINE HCL/PF 0.25% 10 ML VIAL INJ ONE (14:24)
[2016-08-29] MEDS ORDERED: HEMOSTATIC MATRIX 5 ML SYR MISC ONE (16:04)
[2016-08-29] MEDS ORDERED: ONDANSETRON HCL 4 MG/2 ML VIAL IV PRN ×2 (16:20→17:34)
[2016-08-29] MEDS ORDERED: MORPHINE SULFATE 10 MG/ML SYR IV PRN (16:20)
[2016-08-29] MEDS ORDERED: SUGAMMADEX SODIUM 200 MG/2 ML VIAL IV ONE (16:29)
--- NOTE | 2016-08-29 16:57 | PROCEDURE NOTE: Gen Surgery ---
General Surgery Procedure Note - Date of Encounter Date of Encounter: 08/29/16 - Brief Operative Note (1) Small bowel obstruction due to adhesions Date of procedure: 08/29/16 Pre-Op Diagnosis: sbo Post-op diagnosis: same Procedure: Release of SBO Anesthesia Type: General Physician: RANDEE HORNE Estimated Blood Loss: 50 Pathology: none sent X-ray taken: No Images viewed by surgeon: No Images viewed by radiologist: No Sponge and instrument counts: correct Condition: stable Disposition: floor Narrative: Multiple adhesions in the pelvis and the left lower quadrant. No enterotomies were made. There was no clear point of obstruction so all the adhesions were removed.
[2016-08-29] MEDS ORDERED: ACETAMINOPHEN 1,000 MG/100 ML VIAL IV SCH (17:34)
[2016-08-29] MEDS: ACETAMINOPHEN 1,000 MG/100 ML VIAL IV SCH (20:55)
[2016-08-30] MEDS: ACETAMINOPHEN 1,000 MG/100 ML VIAL IV SCH ×4 (03:23→17:31)
[2016-08-30 06:21] LABS: BASOPHILS 0.6 % (0.0-2.0); EOSINOPHILS 0.1 % (0.0-6.0); HEMATOCRIT 43.8 % (42.0-54.0); HEMOGLOBIN 15.3 g/dL (14.0-18.0); LYMPHOCYTES 13.4 % (20.0-40.0); LYMPHOCYTES# 1.1 X 10^3uL (0.8-3.8); MEAN CELL VOLUME 91.1 fL (80.0-100.0); MEAN CORPUS. HGB CONCENTRATION 34.9 g/dL (32.0-36.0); MEAN CORPUSCULAR HEMOGLOBIN 31.8 pg (29.0-35.0); MEAN PLATELET VOLUME 7.4 fL (7.4-10.4); MONOCYTES 8.8 % (2.0-10.0); MONOCYTES# 0.7 X 10^3uL (0.2-1.0); NEUTROPHILS 77.1 % (54.0-75.0); NEUTROPHILS# 6.5 X 10^3uL (2.6-6.7); PLATELET COUNT 217 X 10^3uL (130-440); RED CELL DISTRIBUTION WIDTH 12.4 % (11.5-14.5); WHITE BLOOD COUNT 8.3 X 10^3uL (3.9-10.7)
[2016-08-30 06:35] LABS: A/G RATIO 1.4; ALBUMIN 3.8 g/dL (3.5-5.0); ALKALINE PHOSPHATASE 43 U/L (38-126); ALT 76 U/L (21-72); AST 31 U/L (17-59); BILIRUBIN, TOTAL 1.3 mg/dL (0.2-1.3); BLOOD UREA NITROGEN 14 mg/dL (9-20); CALCIUM 8.9 mg/dL (8.4-10.2); CHLORIDE 105 mmol/L (98-107); EST GLOMERULAR FILTRATION RATE > 60 mL/min; GLUCOSE 108 mg/dL (70-100); POTASSIUM 4.2 mmol/L (3.5-5.1); SODIUM 138 mmol/L (137-145); TOTAL PROTEIN 6.5 g/dL (6.3-8.2)
[2016-08-30] MEDS ORDERED: KETOROLAC TROMETHAMINE 30 MG/ML VIAL IV PRN (09:04)
--- NOTE | 2016-08-30 09:11 | PROGRESS NOTE:General Surgery ---
Assessment and Plan - Date of Encounter Date of Encounter: 08/30/16 (1) Small bowel obstruction due to adhesions Status: Resolved Current Visit: Yes (2) Ileus, postoperative Status: Acute Current Visit: Yes - Time Spent With Patient Total time spent with greater than 50% in coordination of care (as documented) at patient's floor/unit and/or counseling patient: Thus far the patient is doing well. No flatus yet but bowel sounds are fairly active. Wound looks good. Labs ok this a.m.. Will slowly advance to a clear liquid diet. ELVIE: Gen Surg PN Subjective Patient reports: afebrile, still having pain, no bowel movement, no chest pain, no fever, no flatus, no nausea ELVIE: Gen Surgery PN Obj Exam - Latest Vital Signs and I&O Latest Vital Signs/I&O: Vital Signs Temp 36.3 C L 08/30/16 06:12 Pulse 68 08/30/16 06:12 Resp 16 08/30/16 06:12 BP 104/70 08/30/16 06:12 Pulse Ox 90 08/30/16 06:12 Intake & Output 08/29/16 08/30/16 08/30/16 17:59 05:59 17:59 Intake Total 1950 1100 Output Total 300 Balance 1950 800 Weight 97.069 kg 97.069 kg Intake: IV 1950 1050 Left Wrist 1950 Right Hand 1050 Oral 50 Output: Urine 300 Other: Urine Appearance Clear Urine Color Yellow Voiding Method Urinal # Voids 1 - Exam General physical exam: well developed Respiratory exam: clear to auscultation, other (decreased respiratory expansion ) Abdomen exam: bowel sounds (present), soft, other (wound looks ok) - Lab Labs: Laboratory Last Values WBC 8.3 X 10^3uL (3.9-10.7) 08/30/16 06:05 RBC 4.80 X 10^6uL (4.20-6.10) 08/30/16 06:05 Hgb 15.3 g/dL (14.0-18.0) 08/30/16 06:05 Hct 43.8 % (42.0-54.0) 08/30/16 06:05 MCV 91.1 fL (80.0-100.0) 08/30/16 06:05 MCH 31.8 pg (29.0-35.0) 08/30/16 06:05 MCHC 34.9 g/dL (32.0-36.0) 08/30/16 06:05 RDW 12.4 % (11.5-14.5) 08/30/16 06:05 Plt Count 217 X 10^3uL (130-440) 08/30/16 06:05 MPV 7.4 fL (7.4-10.4) 08/30/16 06:05 Neutrophils % 77.1 % (54.0-75.0) H 08/30/16 06:05 Lymphocytes % 13.4 % (20.0-40.0) L 08/30/16 06:05 Eosinophils % 0.1 % (0.0-6.0) 08/30/16 06:05 Basophils % 0.6 % (0.0-2.0) 08/30/16 06:05 Neutrophils # 6.5 X 10^3uL (2.6-6.7) 08/30/16 06:05 Lymphocytes # 1.1 X 10^3uL (0.8-3.8) 08/30/16 06:05 Monocytes 8.8 % (2.0-10.0) 08/30/16 06:05 Monocytes # 0.7 X 10^3uL (0.2-1.0) 08/30/16 06:05 Eosinophils # 0.0 X 10^3uL (0.0-0.4) 08/30/16 06:05 Basophils # 0.0 X 10^3uL (0.0-0.1) 08/30/16 06:05 Sodium 138 mmol/L (137-145) 08/30/16 06:05 Potassium 4.2 mmol/L (3.5-5.1) 08/30/16 06:05 Chloride 105 mmol/L (98-107) 08/30/16 06:05 Carbon Dioxide 22 mmol/L (22-30) 08/30/16 06:05 BUN 14 mg/dL (9-20) 08/30/16 06:05 Creatinine 1.0 mg/dL (0.7-1.3) 08/30/16 06:05 GFR Calculation > 60 mL/min 08/30/16 06:05 Glucose 108 mg/dL (70-100) H 08/30/16 06:05 Calcium 8.9 mg/dL (8.4-10.2) 08/30/16 06:05 Total Bilirubin 1.3 mg/dL (0.2-1.3) 08/30/16 06:05 AST 31 U/L (17-59) 08/30/16 06:05 ALT 76 U/L (21-72) H 08/30/16 06:05 Alkaline Phosphatase 43 U/L (38-126) 08/30/16 06:05 Total Protein 6.5 g/dL (6.3-8.2) 08/30/16 06:05 Albumin 3.8 g/dL (3.5-5.0) D 08/30/16 06:05 Albumin/Globulin Ratio 1.4 08/30/16 06:05 Quality Questions - VTE Prophylaxis Assessment VTE Present on Admission?: No Patient at risk for venous thromboembolism?: Yes VTE Risk Level: Moderate Risk Pharmaceutical VTE prophylaxis contraindication reason: not indicated Mechanical VTE prophylaxis contraindication reason: N/A- VTE prophylaxsis ordered
[2016-08-30] MEDS ORDERED: DEXTROSE IV SCH (10:00)
[2016-08-30] MEDS ORDERED: POTASSIUM CHLORIDE IV SCH (10:00)
[2016-08-30] MEDS ORDERED: [UNRECOGNIZED DRUG - OTHER] IV SCH (10:00)
[2016-08-30] MEDS ORDERED: BISACODYL 10 MG SUPP.RECT RECTAL PRN (16:37)
[2016-08-30] MEDS ORDERED: NA PHOS,M-B/NA PHOS,DI-BA 133 ML BTL RECTAL PRN (16:38)
[2016-08-31] MEDS: ACETAMINOPHEN 1,000 MG/100 ML VIAL IV SCH ×2 (00:26→05:47)
[2016-08-31] MEDS ORDERED: ONDANSETRON ODT 4 MG TAB.RAPDIS PO PRN (07:16)
[2016-08-31] MEDS ORDERED: ACETAMINOPHEN 325 MG TABLET PO PRN (07:18)
--- NOTE | 2016-08-31 07:21 | PROGRESS NOTE:General Surgery ---
Assessment and Plan - Date of Encounter Date of Encounter: 08/31/16 (1) Small bowel obstruction due to adhesions Status: Resolved Current Visit: Yes (2) Ileus, postoperative Status: Acute Current Visit: Yes - Time Spent With Patient Total time spent with greater than 50% in coordination of care (as documented) at patient's floor/unit and/or counseling patient: starting to pass flatus and feeling better. Tolerating liquids. Will switch to po pain meds and hopefully discharge tomorrow. ELVIE: Gen Surg PN Subjective Patient reports: afebrile, feels better, flatus, still having pain, tolerating liquids well, no bowel movement, no chest pain, no fever, no nausea ELVIE: Gen Surgery PN Obj Exam - Latest Vital Signs and I&O Latest Vital Signs/I&O: Vital Signs Temp 36.6 C 08/31/16 07:00 Pulse 83 08/31/16 07:00 Resp 20 08/31/16 07:00 BP 138/82 08/31/16 07:00 Pulse Ox 91 08/31/16 07:00 Intake & Output 08/30/16 08/31/16 08/31/16 17:59 05:59 17:59 Intake Total 1990 400 Output Total 500 525 Balance 1490 -125 Weight 93.44 kg Intake: IV 950 Right Hand 950 Oral 1040 400 Output: Urine 500 525 Other: Urine Appearance Clear Clear Urine Color Straw Yellow Voiding Method Urinal Urinal - Exam Respiratory exam: clear to auscultation, other (decreased respiratory expansion ) Abdomen exam: bowel sounds (present), soft, other (wound looks ok) - Lab Labs: Laboratory Last Values WBC 8.3 X 10^3uL (3.9-10.7) 08/30/16 06:05 RBC 4.80 X 10^6uL (4.20-6.10) 08/30/16 06:05 Hgb 15.3 g/dL (14.0-18.0) 08/30/16 06:05 Hct 43.8 % (42.0-54.0) 08/30/16 06:05 MCV 91.1 fL (80.0-100.0) 08/30/16 06:05 MCH 31.8 pg (29.0-35.0) 08/30/16 06:05 MCHC 34.9 g/dL (32.0-36.0) 08/30/16 06:05 RDW 12.4 % (11.5-14.5) 08/30/16 06:05 Plt Count 217 X 10^3uL (130-440) 08/30/16 06:05 MPV 7.4 fL (7.4-10.4) 08/30/16 06:05 Neutrophils % 77.1 % (54.0-75.0) H 08/30/16 06:05 Lymphocytes % 13.4 % (20.0-40.0) L 08/30/16 06:05 Eosinophils % 0.1 % (0.0-6.0) 08/30/16 06:05 Basophils % 0.6 % (0.0-2.0) 08/30/16 06:05 Neutrophils # 6.5 X 10^3uL (2.6-6.7) 08/30/16 06:05 Lymphocytes # 1.1 X 10^3uL (0.8-3.8) 08/30/16 06:05 Monocytes 8.8 % (2.0-10.0) 08/30/16 06:05 Monocytes # 0.7 X 10^3uL (0.2-1.0) 08/30/16 06:05 Eosinophils # 0.0 X 10^3uL (0.0-0.4) 08/30/16 06:05 Basophils # 0.0 X 10^3uL (0.0-0.1) 08/30/16 06:05 Sodium 138 mmol/L (137-145) 08/30/16 06:05 Potassium 4.2 mmol/L (3.5-5.1) 08/30/16 06:05 Chloride 105 mmol/L (98-107) 08/30/16 06:05 Carbon Dioxide 22 mmol/L (22-30) 08/30/16 06:05 BUN 14 mg/dL (9-20) 08/30/16 06:05 Creatinine 1.0 mg/dL (0.7-1.3) 08/30/16 06:05 GFR Calculation > 60 mL/min 08/30/16 06:05 Glucose 108 mg/dL (70-100) H 08/30/16 06:05 Calcium 8.9 mg/dL (8.4-10.2) 08/30/16 06:05 Total Bilirubin 1.3 mg/dL (0.2-1.3) 08/30/16 06:05 AST 31 U/L (17-59) 08/30/16 06:05 ALT 76 U/L (21-72) H 08/30/16 06:05 Alkaline Phosphatase 43 U/L (38-126) 08/30/16 06:05 Total Protein 6.5 g/dL (6.3-8.2) 08/30/16 06:05 Albumin 3.8 g/dL (3.5-5.0) D 08/30/16 06:05 Albumin/Globulin Ratio 1.4 08/30/16 06:05
[2016-08-31] MEDS: IBUPROFEN 600 MG TABLET PO PRN ×3 (08:32→22:05)
[2016-09-01] MEDS: IBUPROFEN 600 MG TABLET PO PRN (06:25)
[2016-09-01 06:39] VITALS: BP 134/85; PULSE 76; RESP 18; TEMP 97.5; O2SAT 91
--- NOTE | 2016-09-01 07:44 | PROGRESS NOTE:General Surgery ---
Assessment and Plan - Date of Encounter Date of Encounter: 09/01/16 (1) Small bowel obstruction due to adhesions Status: Resolved Assessment and plan: He is doing well. Tolerating diet. Up walking with minimal pain. Having bowel function. dischage today. He will go slow on diet advance. Follow up planned with Dr Terrazas. Rx for pain meds and nausea given. Current Visit: Yes - Time Spent With Patient Total time spent with greater than 50% in coordination of care (as documented) at patient's floor/unit and/or counseling patient: Estimated anticipated discharge: today ELVIE: Gen Surg PN Subjective Patient reports: afebrile, feels better, flatus, no new complaints, still having pain, tolerating liquids well (Had a BM, tolerating po), no bowel movement, no chest pain, no fever, no nausea ELVIE: Gen Surgery PN Obj Exam - Latest Vital Signs and I&O Latest Vital Signs/I&O: Vital Signs Temp 36.4 C L 09/01/16 06:38 Pulse 76 09/01/16 06:38 Resp 18 09/01/16 07:31 BP 134/85 09/01/16 06:38 Pulse Ox 91 09/01/16 07:31 Intake & Output 08/31/16 09/01/16 09/01/16 17:59 05:59 17:59 Intake Total 1040 385 Output Total 350 Balance 1040 35 Intake: Oral 1040 385 Output: Urine 350 Other: Urine Appearance Clear Clear Clear Urine Color Yellow Straw Straw Voiding Method Urinal Toilet Toilet # Voids 1 - Exam General physical exam: no distress (abdomen soft, dressing intact) Respiratory exam: clear to auscultation, other (decreased respiratory expansion ) Abdomen exam: bowel sounds (present), soft, other (wound looks ok) - Lab Labs: Laboratory Last Values WBC 8.3 X 10^3uL (3.9-10.7) 08/30/16 06:05 RBC 4.80 X 10^6uL (4.20-6.10) 08/30/16 06:05 Hgb 15.3 g/dL (14.0-18.0) 08/30/16 06:05 Hct 43.8 % (42.0-54.0) 08/30/16 06:05 MCV 91.1 fL (80.0-100.0) 08/30/16 06:05 MCH 31.8 pg (29.0-35.0) 08/30/16 06:05 MCHC 34.9 g/dL (32.0-36.0) 08/30/16 06:05 RDW 12.4 % (11.5-14.5) 08/30/16 06:05 Plt Count 217 X 10^3uL (130-440) 08/30/16 06:05 MPV 7.4 fL (7.4-10.4) 08/30/16 06:05 Neutrophils % 77.1 % (54.0-75.0) H 08/30/16 06:05 Lymphocytes % 13.4 % (20.0-40.0) L 08/30/16 06:05 Eosinophils % 0.1 % (0.0-6.0) 08/30/16 06:05 Basophils % 0.6 % (0.0-2.0) 08/30/16 06:05 Neutrophils # 6.5 X 10^3uL (2.6-6.7) 08/30/16 06:05 Lymphocytes # 1.1 X 10^3uL (0.8-3.8) 08/30/16 06:05 Monocytes 8.8 % (2.0-10.0) 08/30/16 06:05 Monocytes # 0.7 X 10^3uL (0.2-1.0) 08/30/16 06:05 Eosinophils # 0.0 X 10^3uL (0.0-0.4) 08/30/16 06:05 Basophils # 0.0 X 10^3uL (0.0-0.1) 08/30/16 06:05 Sodium 138 mmol/L (137-145) 08/30/16 06:05 Potassium 4.2 mmol/L (3.5-5.1) 08/30/16 06:05 Chloride 105 mmol/L (98-107) 08/30/16 06:05 Carbon Dioxide 22 mmol/L (22-30) 08/30/16 06:05 BUN 14 mg/dL (9-20) 08/30/16 06:05 Creatinine 1.0 mg/dL (0.7-1.3) 08/30/16 06:05 GFR Calculation > 60 mL/min 08/30/16 06:05 Glucose 108 mg/dL (70-100) H 08/30/16 06:05 Calcium 8.9 mg/dL (8.4-10.2) 08/30/16 06:05 Total Bilirubin 1.3 mg/dL (0.2-1.3) 08/30/16 06:05 AST 31 U/L (17-59) 08/30/16 06:05 ALT 76 U/L (21-72) H 08/30/16 06:05 Alkaline Phosphatase 43 U/L (38-126) 08/30/16 06:05 Total Protein 6.5 g/dL (6.3-8.2) 08/30/16 06:05 Albumin 3.8 g/dL (3.5-5.0) D 08/30/16 06:05 Albumin/Globulin Ratio 1.4 08/30/16 06:05 Tissue Transglutaminase See comments 08/29/16 11:40
--- NOTE | 2016-09-12 11:36 | PREOPERATIVE H&P ---
History of Present Illness (Rudi Terrazas M.D.; 08/29/2016 10:42 AM) The patient is a 56 year old male who presents with abdominal pain. The onset of the pain has been sudden and has been occurring in an intermittent pattern for 2 days. The course has been recurrent. The pain is described as a moderate sharp pain and pressure sensation. The pain is described as being located in the left lower quadrant and does not radiate. The pain is aggravated by certain foods. The pain is relieved by rest. The symptoms have been associated with abdominal distention, bloating, constipation and diarrhea. There is a medical history of laparotomy. Previous evaluations have included CT scan. Problem List/Past Medical (Rudi Terrazas M.D.; 08/29/2016 10:45 AM) Blood pressure elevated without history of HTN (R03.0) Chronic daily headache (R51) 07/11: CT head without contrast in ED negative. Diverticulitis (562.11) Ultimately requiring colostomy. Allergies (Rudi Terrazas M.D.; 08/29/2016 10:45 AM) No Known Drug [id number]/2017 Social History (Rudi Terrazas M.D.; 08/29/2016 10:45 AM) Tobacco Use Former smoker. smoked total of 7 years No drug use No marijuana Alcohol Use Occasional alcohol use. Past Surgical History (Rudi Terrazas M.D.; 08/29/2016 10:45 AM) Colostomy Other Problems (Rudi Terrazas M.D.; 08/29/2016 10:45 AM) Dizziness (R42) Health education/counseling (Z71.89) Review of Systems (Rudi Terrazas M.D.; 08/29/2016 10:45 AM) General Present- Appetite Loss. Not Present- Chills and Fever. Skin Not Present- Rash and Skin Cancer. HEENT Present- Headache. Not Present- Earache and Head Injury. Respiratory Not Present- Lung Problems. Cardiovascular Not Present- Heart Problems. Gastrointestinal Not Present- Chronic diarrhea and Constipation. Male Genitourinary Not Present- Blood in Urine and Dysuria. Musculoskeletal Not Present- Arm Weakness and Arthralgia. Neurological Present- Headaches. Psychiatric Not Present- Anorexia and Anxiety. Endocrine Not Present- Diabetes and Thyroid Problems. Hematology Not Present- Anemia and DVT. Physical Exam (Rudi Terrazas M.D.; 08/29/2016 10:47 AM) General General Appearance-Not Anxious. Orientation-Disoriented X3. Chest and Lung Exam Chest and lung exam reveals -Clear. Cardiovascular Cardiovascular examination reveals -RRR, No murmurs present. Abdomen Inspection Incisional scars - midline. Palpation/Percussion Palpation and Percussion of the abdomen reveal - Soft and Non Tender. Auscultation Bowel sounds increased - Generalized. Assessment & Plan (Rudi Terrazas M.D.; 08/29/2016 10:59 AM) Small bowel obstruction (K56.69) Current Plans OPEN LYSIS OF ADHESIONS(85421) Note:I think his symptoms will persist and he should undergo surgery as he has not been able to eat. Will plan admisision today with surgery later on. Informed consent was obtained in the office. The risk of infection, possible bowel resection and other problems were explained. He was agreeable to going ahead today. Signed by Rudi Terrazas M.D. (08/29/2016 11:03 AM) HERACLIO
== END 2016-09-01 07:43 | disposition home or self-care (01) | DRG 337 ==
LOC: IN 10:57
PROVIDERS: ADMIT Surgery; ATTEND Surgery
PROC: 0DN80ZZ Release Small Intestine, Open Approach (ICD-10-PCS; principal; 2016-08-29)
DX: K56.69 Other intestinal obstruction (principal); R03.0 Elevated blood-pressure reading, without diagnosis of hypertension; R51 Headache; Z87.19 Personal history of other diseases of the digestive system
CPT/HCPCS: 36415; 80048; 80053; 83516; 85025; J1170; J1885; J2250; J2270; J2405; J3010; J7120